=== PATIENT | male | born 1980 | race Caucasian/White ===

== ENCOUNTER 2016-05-20 17:53 | Emergency (ER) | payer SELFPAY ==
[2016-05-20] MEDS ORDERED: ONDANSETRON 4 MG/2 ML VIAL IVP ONE (18:33)
[2016-05-20] MEDS ORDERED: LORazepam 2 MG/ML INJ IVP ONE (18:34)
[2016-05-20] MEDS ORDERED: DIAZEPAM 10 MG/2 ML SYR IVP ONE (18:36)
--- NOTE | 2016-05-20 18:39 | UCPHY ---
H & P Patient Type: New Time Seen by Provider: 05/20/16 18:23 HPI/ROS: CHIEF COMPLAINT: Shoulder pain HISTORY OF PRESENT ILLNESS: The patient is a 35-year-old man who comes to the Urgent Care complaining of right shoulder pain possibly dislocation. He states that he was snowboarding on the street when he fell. His arm was extended above his head. He had immediate pain. This is never happened before. He denies chest pain, neck pain or head injury. He has no significant past medical history. 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 REVIEW OF SYSTEMS: Constitutional: denies: chills, fever, recent illness, recent injury EENTM: denies: blurred vision, double vision, nose congestion Respiratory: denies: cough, shortness of breath Cardiac: denies: chest pain, irregular heart rate, lightheadedness, palpitations Gastrointestinal/Abdominal: denies: abdominal pain, diarrhea, nausea, vomiting, blood streaked stools Genitourinary: denies: dysuria, frequency, hematuria, pain Musculoskeletal: See HPI Skin: denies: lesions, rash, jaundice, bruising Neurological: denies: headache, numbness, paresthesia, tingling, dizziness, weakness Hematologic/Lymphatic: denies: blood clots, easy bleeding, easy bruising Immunologic/allergic: denies: HIV/AIDS, transplant EXAM: GENERAL: Well-appearing, well-nourished and in no acute distress. HEAD: Atraumatic, normocephalic. EYES: Pupils equal round and reactive to light, extraocular movements intact, sclera anicteric, conjunctiva are normal. ENT: TMs normal, nares patent, oropharynx clear without exudates. Moist mucous membranes. NECK: Normal range of motion, supple without lymphadenopathy or JVD. LUNGS: Breath sounds clear to auscultation bilaterally and equal. No wheezes rales or rhonchi. HEART: Regular rate and rhythm without murmurs, rubs or gallops. ABDOMEN: Soft, nontender, normoactive bowel sounds. No guarding, no rebound. No masses appreciated. BACK: No CVA tenderness, no spinal tenderness, step-offs or deformities EXTREMITIES: Right shoulder pain and step-off, clavicle mildly deformed. States has history of previous clavicle fracture. Normal pulses and sensation distally. No elbow or wrist pain. NEUROLOGICAL: Cranial nerves II through XII grossly intact. Normal speech, normal gait. 5/5 strength, normal movement in all extremities, normal sensation PSYCH: Normal mood, normal affect. SKIN: Warm, dry, normal turgor, no visible rashes or lesions. Source: Patient Exam Limitations: No limitations - Medical/Surgical History Hx Asthma: No Hx Chronic Respiratory Disease: No Hx Diabetes: No Hx Cardiac Disease: No Hx Renal Disease: No Hx Cirrhosis: No - Family History Significant Family History: No pertinent family hx - Social History Smoking Status: Never smoked Alcohol Use: Sober Drug Use: None Constitutional: Initial Vital Signs Heart Rate 97 05/20/16 18:30 Respiratory Rate 18 05/20/16 18:30 Blood Pressure 176/111 H 05/20/16 18:30 O2 Sat (%) 95 05/20/16 18:30 O2 Delivery Mode Room Air O2 (L/minute) 3 Allergies/Adverse Reactions: No Known Allergies Allergy (Unverified 05/20/16 18:51) Home Medications: Medication Instructions Recorded Hydrocodone/APAP 5/325 [Nottingham 1 - 2 tab PO Q4H PRN #10 tab 05/20/16 5/325 (RX)] Medical Decision Making - Diagnostics Imaging: X-ray: Shoulder x-ray was obtained. I viewed the images myself on the PACS system. My interpretation of the images is: Anterior dislocation. The radiologist interpretation is anterior dislocation no fracture. X-ray: Shoulder x-ray was obtained. I viewed the images myself on the PACS system. My interpretation of the images is: Successful reduction, no fracture. The radiologist interpretation is pending. Procedures: Procedure: Procedural sedation. Indication: Shoulder reduction. A pre-sedation evaluation was completed on the patient just prior to the procedure. Patient is an appropriate candidate for procedural sedation with a normal 3-3-2 rule assessment and a Mallampati airway score of class 2. The risks of the sedation were discussed including but not limited to dysrhythmia, need for airway intervention or general anesthesia, disability, ; and verbal consent obtained. A timeout was observed and patient's identity confirmed. The patient was sedated with ketamine and propofol. The patient was monitored with continuous pulse oximetry, capnography, and court monitor. There were no complications and no significant hypoxemia. I remained at the bedside for the sedation. The total time I spent in the procedural sedation was 16 minutes. Procedure: Dislocation reduction. The shoulder was reduced in the usual fashion using the Wilmer's technique and scapular manipulation without complications. Post reduction the patient's neurovascular exam is normal. Post reduction x-ray demonstrates reduction of the joint to the anatomic position. The procedure was performed by myself. ED Course/Re-evaluation: The patient is feeling completely better. He is eager to go home. Sling is in place. He sling back to [place] tomorrow. He will follow up with an orthopedist there. I will give him Vicodin to take if needed for pain. He understands and agrees with this plan. He declines further workup or testing. Additional verbal discharge instructions given. Differential Diagnosis: Partial list of the Differential diagnosis considered include but were not limited to; shoulder dislocation, fracture, AC separation and although unlikely based on the history and physical exam, I also considered assault, infection, clavicle fracture. I discussed these differential diagnoses and the plan with the patient as well as the usual and expected course. The patient understands that the diagnosis is provisional and that in medicine we are not always correct and that further workup is often warranted. Usual and customary warnings were given. All of the patient's questions were answered. The patient was instructed to return to the emergency department should the symptoms at all worsen or return, otherwise to followup with the physician as we discussed. - Data Points Medications Given: Discontinued Medications Acetaminophen/Hydrocodone Bitart ([place]tingham 5/325mg Prepack#6) 1 btl TAKEHOME EDNOW ONE Stop: 05/20/16 20:40 Last Admin: 05/20/16 20:45 Dose: 1 btl Diazepam (Valium Injection) 5 mg IVP EDNOW ONE Stop: 05/20/16 18:37 Last Admin: 05/20/16 19:01 Dose: 5 mg Hydromorphone HCl (Dilaudid) 1 mg IVP EDNOW ONE Stop: 05/20/16 18:46 Last Admin: 05/20/16 19:00 Dose: 1 mg Sodium Chloride (Ns) 1,000 mls @ 0 mls/hr IV ONCE ONE PRN Reason: Wide Open Stop: 05/20/16 19:48 Last Admin: 05/20/16 19:30 Dose: 1,000 mls Ketamine HCl (Ketamine) 100 mg IVP EDNOW ONE Stop: 05/20/16 19:25 Last Admin: 05/20/16 19:30 Dose: 100 mg Lorazepam (Ativan Injection) 1 mg IVP EDNOW ONE Stop: 05/20/16 18:35 Last Admin: 05/20/16 19:15 Dose: Not Given Ondansetron HCl (Zofran) 4 mg IVP EDNOW ONE Stop: 05/20/16 18:34 Last Admin: 05/20/16 19:00 Dose: 4 mg Propofol (Diprivan) 40 mg IVP EDNOW ONE Stop: 05/20/16 19:25 Last Admin: 05/20/16 19:30 Dose: 140 mg Departure - Departure Disposition: Home, Routine, Self-Care Clinical Impression: Shoulder dislocation Qualifiers: Encounter type: initial encounter Laterality: right Qualifier Code: (S43.004A) Unspecified dislocation of right shoulder joint, initial encounter Condition: Fair Instructions: Shoulder Dislocation (ED) Referrals: OUT OF STATE,. [Primary Care Provider] - As per Instructions Prescriptions: Hydrocodone/APAP 5/325 [[place] 5/325 (RX)] 1 - 2 tab PO Q4H PRN #10 tab PRN Reason: Pain, Moderate - PQRS PQRS Measurement: Not applicable
[2016-05-20] MEDS ORDERED: HYDROmorphONE/DILAUDID 1 MG/ML SYR IVP ONE (18:45)
--- NOTE | 2016-05-20 19:22 | DX ---
Right Shoulder , 3 Views, 19:01 History: Pain post trauma. Fall snowboarding. Findings: The humeral head is well rounded and anteriorly dislocated. No fracture is identified. Impression: Anterior shoulder dislocation.
[2016-05-20] MEDS ORDERED: PROPOFOL 200 MG/20 ML VIAL IVP ONE (19:24)
[2016-05-20] MEDS ORDERED: KETAMINE 100 MG/10 ML SYR IVP ONE ×2 (19:24→19:25)
[2016-05-20] MEDS ORDERED: PROPOFOL 200 MG/20 ML VIAL ONE (19:25)
[2016-05-20] MEDS ORDERED: NS 1,000 ML IV ONE (19:47)
[2016-05-20 20:00] VITALS: RESP 16
--- NOTE | 2016-05-20 20:17 | DX ---
Right Shoulder, 2 views, post reduction, 19:49 History: Prior right anterior dislocation Findings: The humeral head is relocated in the glenoid. No Hill-Sachs deformity is identified. The AC joint looks wide at 9 mm, without superior-inferior malalignment, and with a normal coracoclavicular distance, suggesting a sprain. Impression: 1. Successful reduction of the right shoulder dislocation 2. AC joint sprain? Views of the opposite AC joint might be helpful.
[2016-05-20 20:29] VITALS: BP 153/86; PULSE 74; TEMP 97.9; O2SAT 96
[2016-05-20] MEDS ORDERED: HYDROCOD/APAP 5/325 PREPACK#6 BTL TAKEHOME ONE (20:39)
== END 2016-05-20 20:48 | disposition home or self-care (01) ==
LOC: CED 17:53
PROC: 0RSJXZZ Reposition Right Shoulder Joint, External Approach (ICD-10-PCS; principal; 2016-05-20)
DX: S43.004A Unspecified dislocation of right shoulder joint, initial encounter (principal)
CPT/HCPCS: 23650-PO; 73030-PO; 96360-PO; 99205-PO; G0463-PO; J1170; J2405; J2704